=== PATIENT | male | born 1980 | race Two or more races ===

== ENCOUNTER 2021-04-18 12:18 | Outpatient (REF) | payer OTHER, SELFPAY ==
--- NOTE | ~2021-04-18 | XR_ITS ---
EXAMINATION: XR BILATERAL HIPS WITH AP PELVIS CLINICAL INFORMATION: Pain COMPARISON: None TECHNIQUE: AP pelvis 2 views. Left hip 2 views. Right hip 2 views. FINDINGS: The right femoral head articulates with the acetabulum. The right femur is externally rotated in positioning. The morphology of the femoral head is within normal limits, allowing for positioning/technique. Joint space is maintained. No visible acute fracture or dislocation. Dysmorphic appearance of the left femoral head, with flattening. The acetabulum is dysplastic with steep contour and is shallow. The findings appear chronic in nature. The femoral head is partially laterally subluxed with respect to the acetabulum, with uncovering of the lateral aspect of the femoral head. No acute fracture is seen. SI joints and symphysis pubis are intact. No acute pelvic fractures seen. Phleboliths in the pelvis. 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 Findings appear chronic in nature. -The right hip joint articulation appears maintained, allowing for positioning/technique.
== END 2021-04-18 12:19 | disposition home or self-care (01) ==
LOC: HO.XRAY 12:18
PROVIDERS: PCP Internal Medicine; Visit Provider Internal Medicine
DX: M25.552 Pain in left hip (principal)
CPT/HCPCS: 73521

== ENCOUNTER 2021-05-09 14:52 | Outpatient (REF) | payer OTHER, SELFPAY ==
--- NOTE | ~2021-05-09 | XR_ITS ---
EXAMINATION: XR FOOT, LEFT CLINICAL INFORMATION: Cellulitis COMPARISON: None TECHNIQUE: AP, lateral, and oblique views of the left foot. FINDINGS: There is pes planus. Alignment is otherwise normal. No fracture or location no x-ray evidence of osteomyelitis are normal. There is soft tissue swelling over the toe. There are several small radiopaque density projecting over the soft tissues of the plantar surface of the great toe seen on the lateral view, largest measuring 2 mm. There is a third 2 mm density projecting over the plantar soft tissues at the level of the metatarsal heads. It is uncertain whether these are on the skin XR/XR foot LT min 3V IMPRESSION: Soft tissue swelling. No fracture or evidence of osteomyelitis. Small densities projecting over the plantar surface of foot seen on the lateral view only. Location is uncertain. This may be on the skin.
== END 2021-05-09 14:53 | disposition home or self-care (01) ==
LOC: HO.XRAY 14:52
PROVIDERS: Absent Provider Internal Medicine; PCP Internal Medicine; Visit Provider Emergency Medicine
DX: L03.032 Cellulitis of left toe (principal)
CPT/HCPCS: 73630

== ENCOUNTER → 2021-05-17 08:28 | Outpatient (BNVA) | payer OTHER, SELFPAY | PROVIDERS: PCP Internal Medicine; Visit Provider Physician Assistant | DX: Q65.89 Other specified congenital deformities of hip (principal) | CPT/HCPCS: 99202 ==

== ENCOUNTER 2023-06-21 14:35 | Outpatient (REF) | payer OTHER, SELFPAY ==
[2023-06-21 16:40] LABS: Estimated Average Glucose 117 mg/dL; Hemoglobin A1c % 5.7 % (<6.0)
[2023-06-21 18:51] LABS: Alanine Aminotransferase 43 U/L (0-40); Albumin Level 4.5 g/dL (3.5-5.0); Alkaline Phosphatase 67 U/L (39-117); Anion Gap 18 (12-20); Aspartate Amino Transferase 29 U/L (5-37); Bilirubin Total 0.3 mg/dL (0.0-1.0); Blood Urea Nitrogen 11 mg/dL (9-16); Calcium 10.1 mg/dL (8.4-10.2); Carbon Dioxide 23 mmol/L (22-29); Chloride 101 mmol/L (96-108); Cholesterol 240 mg/dL (<200); Estimated Glomerular Filt Rate > 60; Glucose Random 94 mg/dL (60-115); HDL Cholesterol 57 mg/dL (>40); LDL Cholesterol Calculated 158 mg/dL (<100); Sodium 138 mmol/L (135-145); Total Protein 8.2 g/dL (6.5-8.0); Triglycerides 127 mg/dL (<150)
[2023-06-21 19:04] LABS: Creatinine Urine 102.01 mg/dL; Microalbum/Creatinine Ratio Ur 5.8 ug/mg cr (<30)
== END 2023-06-21 14:36 | disposition home or self-care (01) ==
LOC: HO.HHCL 14:35
PROVIDERS: Visit Provider Nurse Practitioner
DX: I10 Essential (primary) hypertension (principal); E66.9 Obesity, unspecified
CPT/HCPCS: 36415; 80053; 80061; 82043; 82570; 83036

== ENCOUNTER 2024-03-02 15:29 | Outpatient (REF) | payer OTHER, SELFPAY ==
[2024-03-02 19:40] LABS: Alanine Aminotransferase 25 U/L (0-40); Albumin Level 4.6 g/dL (3.5-5.0); Anion Gap 18 (12-20); Aspartate Amino Transferase 33 U/L (5-37); Bilirubin Direct 0.1 mg/dL (0.0-0.5); Bilirubin Total 0.5 mg/dL (0.0-1.0); Blood Urea Nitrogen 10 mg/dL (9-16); Calcium 9.9 mg/dL (8.4-10.2); Carbon Dioxide 22 mmol/L (22-29); Chloride 103 mmol/L (96-108); Estimated Glomerular Filt Rate > 60; Glucose Random 106 mg/dL (60-115); Potassium 3.8 mmol/L (3.3-5.1); Sodium 139 mmol/L (135-145); Total Protein 8.9 g/dL (6.5-8.0); Vitamin D 25-OH Total 62.8 ng/mL (>30)
[2024-03-02 20:15] LABS: Alkaline Phosphatase 72 U/L (39-117)
[2024-03-03 04:56] LABS: HBS Num1 7.74 mIU/mL (0-7.99); HBc Num1 0.16 S/CO (0.00-0.79); HBsAGNum1 0.34 S/CO (0.00-0.99); Hepatitis B Core Antibody Nonreactive (Nonreactive); Hepatitis B Surface Antigen Negative (Negative); ~Hepatitis B Surface Antibody NONREACTIVE (Nonreactive)
== END 2024-03-02 15:30 | disposition home or self-care (01) ==
LOC: HO.HHCL 15:29
PROVIDERS: Visit Provider Nurse Practitioner
DX: I10 Essential (primary) hypertension (principal); R74.8 Abnormal levels of other serum enzymes; E55.9 Vitamin D deficiency, unspecified; Z13.9 Encounter for screening, unspecified
CPT/HCPCS: 36415; 80053; 82248; 82306; 86704; 86706; 87340

== ENCOUNTER 2024-07-01 15:32 | Outpatient (REF) | payer OTHER, SELFPAY ==
[2024-07-01 16:51] LABS: Anion Gap 16 (12-20); Blood Urea Nitrogen 11 mg/dL (9-16); Calcium 9.7 mg/dL (8.4-10.2); Carbon Dioxide 27 mmol/L (22-29); Chloride 101 mmol/L (96-108); Cholesterol 163 mg/dL (<200); Estimated Glomerular Filt Rate > 60; Glucose Random 98 mg/dL (60-115); HDL Cholesterol 51 mg/dL (>40); LDL Cholesterol Calculated 77 mg/dL (<100); Potassium 3.5 mmol/L (3.3-5.1); Sodium 140 mmol/L (135-145); Triglycerides 176 mg/dL (<150)
[2024-07-01 17:01] LABS: Creatinine Urine 60.65 mg/dL; Microalbumin Urine < 5.0 mg/L
== END 2024-07-01 15:33 | disposition home or self-care (01) ==
LOC: HO.HHCL 15:32
PROVIDERS: Visit Provider Nurse Practitioner
DX: I10 Essential (primary) hypertension (principal)
CPT/HCPCS: 36415; 80048; 80061; 82043; 82570